=== PATIENT | male | born 2005 | race Caucasian/White ===

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

== ENCOUNTER 2023-04-17 14:59 | Emergency (ER) | payer MEDICAID, SELFPAY ==
[2023-04-17 15:01] VITALS: BP 145/78; PULSE 92; TEMP 36.9; O2SAT 98; BMI 17.4
--- NOTE | 2023-04-17 15:05 | CTR_ITS ---
PROCEDURE INFORMATION: Exam: CT Head Without Contrast Exam date and time: 04/17/2023 3:23 PM Age: 18 years old Clinical indication: Other: Seizures; Additional info: Seizure TECHNIQUE: Imaging protocol: Computed tomography of the head without contrast. Axial, coronal and sagittal reformatted images were created and reviewed. Radiation optimization: All CT scans at this facility use at least one of these dose optimization techniques: automated exposure control; mA and/or kV adjustment per patient size (includes targeted exams where dose is matched to clinical indication); or iterative reconstruction. REPORTING DATA: Count of CT and Cardiac NM exams in prior 12 months: This patient has received [address] and 0 known cardiac nuclear medicine studies in the 12 months prior to the current study. COMPARISON: CT head wo con* [id number] 12/23/2022 11:59 PM RADIATION DOSE METRICS: Total DLP (mGy-cm): 1025.29 FINDINGS: Brain: No CT evidence of acute intracranial hemorrhage or acute territorial infarction. No significant mass effect or midline shift. Basal cisterns patent. Cerebral ventricles: Normal in size and configuration. Paranasal sinuses: Unremarkable. No fluid levels. Mastoid air cells: Grossly unremarkable. Bones/joints: No acute osseous abnormality. Soft tissues: Mild right periorbital soft tissue swelling. CT/CT head wo con* [id number] IMPRESSION: 1. No CT evidence of acute intracranial pathology. 2. Additional findings, as above.
--- NOTE | 2023-04-17 15:12 | ED_ITS ---
HPI - Seizure General: Chief Complaint: Seizure Stated Complaint: SEIZURES; FALL Time Seen by Provider: 04/17/23 15:02 Source: patient and EMS Mode of arrival: EMS Limitations: no limitations History of Present Illness: HPI Narrative: 18-year-old male that is homeless also history of seizures states he is unsure what happened today but he believes he may have a seizure. EMS states that bystanders had called seen him in the road he has an abrasion to his head states that he had had some confusion but he does not remember what exactly happened but believes he may have had a seizure denies any alcohol abuse he does use marijuana no other drugs he denies any headache or complaints at this time Associated symptoms: Deny chest pain, chills or fever(s) Review of Systems Const: Denies: fever(s), chills, body aches or change in appetite Eyes: Denies: blurry vision or eye discomfort ENMT: Denies: throat pain or dental pain Card: Denies: chest pain Resp: Denies: dyspnea GI: Denies: abdominal pain, nausea, vomiting or diarrhea Musc: Denies: neck pain or back pain Skin/Breast: Denies: rash Neuro: Denies: headache(s) PFSH ED PFSH: Medical History Psychiatric care Social History Smoking and tobacco status: light tobacco smoker cigarettes Alcohol intake: current Alcohol intake frequency: holidays/special occasions only Substance/Drug Use: current Substance/Drug use frequency: few times a month Physical Exam Const: COMMON NORMALS: no acute distress, patient oriented x3 and healthy appearing HENMT: COMMON NORMALS: normocephalic; head/scalp not atraumatic (Abrasion to forehead) HEAD & SCALP: normocephalic; not atraumatic (Abrasion to forehead) Eye: COMMON NORMALS: Equal, round and reactive pupils present and EOMs intact bilaterally PUPIL: Yes Equal, round and reactive pupils present Neck/C-Spine: COMMON NORMALS: full ROM and supple Chest: COMMONS NORMALS: normal inspection of the chest and normal palpation of entire chest wall Resp: COMMON NORMALS: normal respiratory effort, No retractions, No use of accessory muscles and clear to auscultation bilaterally AUSCULTATION: clear to auscultation bilaterally Cardio: COMMON NORMALS: regular rate, regular rhythm and No murmurs present (Cardio) RATE: regular rate RHYTHM: regular rhythm GI: COMMON NORMALS: Normal to inspection, nondistended, normoactive bowel sounds present, Soft to palpation, non-tender and no masses PALPATION: Yes Soft to palpation Extremity: COMMON NORMALS: normal to inspection and full ROM Neuro: COMMON NORMALS: patient oriented x3, moves all extremities and no focal motor deficits Psych: COMMON NORMALS: mental status grossly normal, Normal thought process present and cooperative THOUGHT PROCESS: Normal thought process present Skin: COMMON NORMALS: no rashes or lesions noted and no wounds GENERAL SKIN EXAM: no rashes or lesions noted Course Vital Signs: Vital signs: Vital Signs Temperature 98.5 F 04/17/23 15:01 Pulse Rate 63 04/17/23 16:10 Blood Pressure 111/75 04/17/23 16:10 Pulse Oximetry 98 04/17/23 16:10 Oxygen Delivery Me thod Room Air 04/17/23 15:01 MDM - Seizure MDM Narrative Medical decision making narrative: Patient presents here after likely seizure he did have a head injury head CT blood work are all normal we will refill his Keppra that he never got filled he is to follow-up return if worsening. Lab Data 04/17/23 14:47 04/17/23 14:47 Labs: Radiology Impressions Head CT 04/17/23 15:05 IMPRESSION: 1. No CT evidence of acute intracranial pathology. 2. Additional findings, as above. Laboratory Results WBC 7.90 10^3/uL (4.5-13.0) 04/17/23 14:47 RBC 5.20 10^6/uL (3.85-5.65) 04/17/23 14:47 Hgb 15.50 g/dL (13.2-15.6) 04/17/23 14:47 Hct 44.7 % (37-53) 04/17/23 14:47 MCV 86.0 fl (82-101) 04/17/23 14:47 MCH 29.8 pg (27-33) 04/17/23 14:47 MCHC 34.7 g/dL (30-55) 04/17/23 14:47 RDW 12.1 % (12.1-15.1) 04/17/23 14:47 Plt Count 188 10^3/cmm (157-399) 04/17/23 14:47 MPV 11.5 fL (7.4-10.4) H 04/17/23 14:47 Neut % (Auto) 59.0 % 04/17/23 14:47 Lymph % (Auto) 27.6 % 04/17/23 14:47 [place] % (Auto) 10.4 % 04/17/23 14:47 Eos % (Auto) 1.8 % 04/17/23 14:47 Baso % (Auto) 0.8 % 04/17/23 14:47 Neut # (Auto) 4.67 10^3/uL (1.8-8.0) 04/17/23 14:47 Lymph # (Auto) 2.2 10^3/uL (1.5-6.5) 04/17/23 14:47 [place] # (Auto) 0.8 10^3/uL (0.2-0.9) 04/17/23 14:47 Eos # (Auto) 0.1 10^3/uL (0.0-0.8) 04/17/23 14:47 Baso # (Auto) 0.1 10^3/uL (0.0-0.1) 04/17/23 14:47 Nucleated RBC % (auto) 0 % 04/17/23 14:47 Nucleated RBCs # 0.0 /100WBC 04/17/23 14:47 Sodium 145 mmol/L (136-145) 04/17/23 14:47 Potassium 3.7 mmol/L (3.5-5.1) 04/17/23 14:47 Chloride 102 mmol/L (98-107) 04/17/23 14:47 Carbon Dioxide 22 mmol/L (22-29) 04/17/23 14:47 Anion Gap 24.7 (5-19) H 04/17/23 14:47 BUN 9 mg/dL (6-20) 04/17/23 14:47 Creatinine 1.1 mg/dL (0.7-1.2) 04/17/23 14:47 GFR Calculation 85.3 mL/min (90-130) L 04/17/23 14:47 Glucose 98 mg/dL (65-115) 04/17/23 14:47 Calculated Osmolality 299 mOsm/kg (285-295) H 04/17/23 14:47 Calcium 9.4 mg/dL (8.5-10.5) 04/17/23 14:47 Ethyl Alcohol < 10 mg/dL (0-10) 04/17/23 14:47 All radiology interpretation(s) finalized by discharge Discharge Plan Discharge Patient Disposition: Home Clinical Impression: Generalized seizure, Head injury Condition: Stable Prescriptions: Continued Keppra 500 mg tablet 500 mg PO BID Qty: 60 0RF Discharge Orders: Discharge ED (Routine); Ordered 04/17/23 Ordered By: Arsh Colon Discharge Diet: Advance as tolerated Discharge Activity: Resume usual activity Patient Instructions: Head Injury (ED), Generalized Tonic Clonic Seizures (ED) Coding Level of Care Code ED [employer] for Nae Mullen
[2023-04-17 15:17] LABS: Basophils # 0.1 10^3/uL (0.0-0.1); Basophils % 0.8 %; Eosinophils # 0.1 10^3/uL (0.0-0.8); Eosinophils % 1.8 %; Hematocrit 44.7 % (37-53); Lymphocytes # 2.2 10^3/uL (1.5-6.5); Lymphocytes % 27.6 %; Mean Corpuscular HGB Conc 34.7 g/dL (30-55); Mean Corpuscular Hemoglobin 29.8 pg (27-33); Mean Platelet Volume 11.5 fL (7.4-10.4); Monocytes # 0.8 10^3/uL (0.2-0.9); Monocytes % 10.4 %; Neutrophils # 4.67 10^3/uL (1.8-8.0); Nucleated Red Blood Cells % 0 %; Platelet Count 188 10^3/cmm (157-399); Red Cell Distribution Width 12.1 % (12.1-15.1)
[2023-04-17 15:41] LABS: Anion Gap 24.7 (5-19); Blood Urea Nitrogen 9 mg/dL (6-20); Calcium 9.4 mg/dL (8.5-10.5); Carbon Dioxide 22 mmol/L (22-29); Chloride 102 mmol/L (98-107); Glomerular Filtration Rate 85.3 mL/min (90-130); Glucose 98 mg/dL (65-115); Osmolality Calculated 299 mOsm/kg (285-295); Potassium 3.7 mmol/L (3.5-5.1); Sodium 145 mmol/L (136-145)
[2023-04-17 15:45] LABS: Alcohol Level < 10 mg/dL (0-10)
[2023-04-17 16:10] VITALS: BP 111/75; PULSE 63; O2SAT 98
== END 2023-04-17 16:48 | disposition home or self-care (01) ==
PROVIDERS: Emergency Provider Emergency Medicine
DX: G40.409 Other generalized epilepsy and epileptic syndromes, not intractable, without status epilepticus (principal); S09.90XA Unspecified injury of head, initial encounter; S00.81XA Abrasion of other part of head, initial encounter; F17.210 Nicotine dependence, cigarettes, uncomplicated; Z59.00 Homelessness unspecified; W19.XXXA Unspecified fall, initial encounter
CPT/HCPCS: 70450; 80048; 80307; 85025; 96365; 99284; J1953